=== PATIENT | male | born 1990 | race Caucasian/White ===

== ENCOUNTER 2017-01-24 19:40 | Emergency (ER) | payer BC ==
[~2017-01-24] VITALS: Ht 165.1 cm; Wt 72.1 kg
[2017-01-24 19:49] VITALS: Ht 165.1 cm; Wt 72.1 kg
[2017-01-24 20:42] VITALS: BP 161/79
== END 2017-01-24 20:42 | disposition home or self-care (01) ==
LOC: ED 19:40
DX: K04.7 Periapical abscess without sinus (principal); K05.10 Chronic gingivitis, plaque induced